=== PATIENT | male | born 1990 | race Caucasian/White ===

== ENCOUNTER 2021-10-10 09:51 | Emergency (ER) | payer BC ==
[2021-10-10 11:28] VITALS: BP 123/77; PULSE 83; TEMP 97.5; BMI 26.6
[2021-10-10] MEDS ORDERED: OXYMETAZOLINE 0.05% NASAL SOLUTION 15 ML BOTTLE NS ONE (12:41)
[2021-10-10] MEDS ORDERED: ACETAMINOPHEN 325 MG TABLET (FP) PO ONE (12:53)
[2021-10-10] MEDS ORDERED: METOCLOPRAMIDE HCL 10 MG TABLET (FP) PO ONE ×2 (12:53→13:03)
[2021-10-10] MEDS ORDERED: ACETAMINOPHEN 325 MG TABLET (FP) ONE (13:03)
== END 2021-10-10 14:37 | disposition home or self-care (01) ==
LOC: JER 09:51
DX: R04.0 Epistaxis (principal)
CPT/HCPCS: 99283-25